=== PATIENT | male | born 1970 | race African-American/Black ===

== ENCOUNTER 2020-04-13 18:17 | Emergency (ER) | payer BC, OTHER ==
--- OUTSIDE RECORDS SUMMARY | 2020-04-13 18:20 | XMS REPORT | Summary of Care ---
:1970 Author Organization [facility] Address [address] [place] [address] Care Team Providers Name Role Phone Diamond Ordoñez MD Primary Care Provider Reason for Visit Reason Comments LAB Encounter Details Date Type Department Care Team Description 02/12/2020 [place] Visit [facility] Sen Burroughs MD [address] [place] [address] [address] Hyperthyroidism CLINICS LAB Pcp-Lab Primary Care [facility] jose [address] [place] [phone] Allergies No Known Allergiesdocumented as of this encounter (statuses as of 02/12/2020) Medications Medication Sig Dispensed Refills Start Date End Date Status Melatonin 1 mg Take 1-10 tablets 0 01/14/2017 Active tabletIndications: by mouth at Chronic insomnia bedtime as needed for Insomnia. Cholecalciferol, Take 1 capsule by 0 03/04/2017 Active Vitamin D3, (VITAMIN mouth daily. D3) 2,000 unit capsule triamcinolone 0.5 % Apply to area(s) 30 g 1 10/07/2018 Active creamIndications: Rash 3 (three) times daily. olmesartan 40 mg Take 1 tablet by 90 tablet 3 06/11/2019 Active tabletIndications: mouth daily. Essential hypertension KCL 10 mEq tablet Take 1 tablet by 90 tablet 3 06/11/2019 Active mouth daily. TRAZODONE 100 mg TAKE 1 TABLET BY 90 tablet 1 11/09/2019 Active tabletIndications: MOUTH EVERY NIGHT Chronic insomnia AT BEDTIME triamterene-hydrochloro Take 1 tablet by 30 tablet 5 0 Active thiazid 37.5-25 mg mouth daily. tabletIndications: Essential hypertension propranoloL 20 mg Take 1 tablet by 60 tablet 5 12/16/2019 Active tabletIndications: mouth 2 (two) Graves disease times daily. documented as of this encounter (statuses as of 02/12/2020) Active Problems Problem Noted Date Hyperthyroidism 07/17/2019 Anemia, unspecified type 07/09/2019 Venous insufficiency of both lower extremities 019 Overview: Added automatically from request for jimena sandoval [id number] Edema of right lower extremity 11/05/2018 Fatty liver 10/31/2017 Abnormal LFTs 10/07/2017 Screening for colorectal cancer 03/18/2017 Overview: Added automatically from request for jimena sandoval [id number] Prediabetes 03/04/2017 Erythrocytosis 03/04/2017 Low HDL (under 40) 03/04/2017 Microcytosis 03/04/2017 Vitamin D deficiency 03/04/2017 Hypertension Obesity (BMI 30-39.9) documented as of this encounter (statuses as of 02/12/2020) Immunizations Name Administration Dates Next Due TDAP 02/22/2017 documented as of this encounter Social History Tobacco Use Types Packs/Day Years Used Date Never Smoker Smokeless Tobacco: Never Used Alcohol Use Drinks/Week oz/Week Comments Yes 1 Shots of liquor 1.0 Sex Assigned at Date Recorded Not on file COVID-19 Exposure Response Date Recorded In the last month, have you been in contact with No / Unsure 02/12/2020 9:02 AM CDT someone who was confirmed or suspected to have Coronavirus / COVID-19? documented as of this encounter Last Filed Vital Signs Not on filedocumented in this encounter Nursing Notes Janna Patterson - 02/12/2020 11:15 AM CDT Venipuncture collection performed by clean technique on the left anticubitus. Total of 1 attempts were made. Slight pressure and a bandage/dressing were applied to the site(s). The patient experienced no complications. The following specimens were processed according to instructions and sent to [facility] laboratories per lab order on 02/12/2020: LT BLUE SST 1 RED LAV PPT DK GREEN (LiHep) DK GREEN (SodH) CONDE DK BLUE (K2) DK BLUE (S) ACD Blood Culture NIPT/NTD documented in this encounter Plan of Treatment Date Type Specialty Care Team Description 05/20/2020 Office Visit Endocrinology Diabetes & Jose Hinojosa MD Metabolism [address] [place] [phone] Name Type Priority Associated Diagnoses Date/Ti me THYROID STIMULATING HORMONE LAB Routine Hyperthyroidi sm 02/12/2020 10:18 AM CDT FREE T4 LAB Routine Hyperthyroidism 02/12/2020 1 0:18 AM CDT TRIIODOTHYRONINE LAB Routine Hyperthyroidism 02/12/20 20 10:18 AM CDT FREE T3 LAB Routine Hyperthyroidism 02/12/2020 1 0:18 AM CDT Health Maintenance Due Date Last Done Comments PNEUMOCOCCAL 0-64 YEARS COMBINED SERIES (1 of 3 - 1978 PCV13) INFLUENZA VACCINE (#1) 2019 Depression Screening 06/22/2020 06/23/2019 COLON CANCER SCREENING ANNUAL FIT/FOBT 2022 0 Colorectal Cancer Screening 2022 DTaP,Tdap,and Td Vaccines (2 - Td) 02/22/2027 02/22/2017 documented as of this encounter Results Not on filedocumented in this encounter Visit Diagnoses Diagnosis Hyperthyroidism Thyrotoxicosis without mention of goiter or other cause, without mention of thyrotoxic crisis or storm documented in this encounter Insurance Payer Benefit Plan Subscriber ID Effective Dates Phone Address Type / Group BCBS OF [facility] [id number] 2017-Presen [phone] [address] PPO/POS [place] t 7 [id number] [place] [address] BCBS OF [facility] [id number] 2007-Prese [phone] [address]/POS [place] nt 7 [id number] [place] [address] documented as of this encounter
--- OUTSIDE RECORDS SUMMARY | 2020-04-13 18:21 | XMS REPORT | Summary of Care ---
:1970 Author Organization [facility] Address [address] [place] [address] Care Team Providers Name Role Phone Diamond Ordoñez MD Primary Care Provider Reason for Visit Reason Comments HYPERTHYROIDISM Encounter Details Date Type Department Care Team Description 02/12/2020 Office Visit [facility] Pilo Feliz MD [facility] [address] [place] (Primary Dx) Primary Care [facility] [address] [place] [address] [phone], [address] [place] [address] Allergies No Known Allergiesdocumented as of this [...] Added automatically from request for jimena sandoval [id number] Edema of right lower extremity 11/05/2018 Fatty liver 10/31/2017 Abnormal LFTs 10/07/2017 Screening for colorectal cancer 03/18/2017 Overview: Added automatically from request for jimena sandoval [id number] Prediabetes 03/04/2017 Erythrocytosis 03/04/2017 Low HDL (under [...] of this encounter Last Filed Vital Signs Vital Sign Reading Time Taken Comments Blood Pressure 126/83 02/12/2020 9:33 AM CDT Pulse 58 02/12/2020 9:33 AM CDT Temperature 36.4 C (97.6 F) 02/12/2020 9:33 AM CDT Respiratory Rate 17 02/12/2020 9:33 AM CDT Oxygen Saturation 98% 02/12/2020 9:33 AM room air CDT Inhaled Oxygen Concentration - - Weight 124.9 kg (275 lb 6.4 oz) 02/12/2020 9:33 AM CDT Height 177.8 cm (5' 10") 02/12/2020 9:33 AM CDT Body Mass Index 39.52 02/12/2020 9:33 AM CDT documented in this encounter Progress Notes Melva Baker MBBS - 02/12/2020 9:30 AM CDT Endocrinology Telehealth Progress Note History of presenting Illness Eliazar Hall is a 49 year old Black or male who presented today for an evaluation of hyperthyroidism Patient is here today for follow up of hyperthyroidism due to Graves disease Patient had elevated TFTs in 05/2019 and 06/2019 : TSH < 0.01, Free T3 19.30, Free T4 : 3.76. Patient underwent RAIA in July 2019 for graves disease Reports weight gain of 10bs since July 2019 but no other hypo/hyperthyroid symptoms Heat or cold intolerance: no Energy is good Insomnia and anxiety: no Significant change in the weight: yes: weight gain of 10lbs since 07/2019 Palpitation or tremor: no Excessive sweating: no Skin changes or hair loss: no Constipation or diarrhea: : no He takes MV tablet once daily. Doesn' know if it contains biotin The following portions of the patient's history were reviewed and updated as appropriate: allergies,current medications, past family history, past medical history, past social history, past surgical history. Past Medical History: Diagnosis Date Abnormal LFTs 10/07/2017 Erythrocytosis 03/04/2017 Fatty liver 10/31/2017 Hypertension Hyperthyroidism Low HDL (under 40) 03/04/2017 Microcytosis 03/04/2017 Obesity (BMI 30-39.9) Prediabetes 03/04/2017 Vitamin D deficiency 03/04/2017 Past Surgical History: Procedure Laterality Date CHOLECYSTECTOMY 1998 RADIOFREQUENCY THERMOCOAGULATION OF VARICOSE VEINS (SHX) Right 06/23/2019 Surgeon: Linda Colorado MD; Location: [facility] Current Outpatient Medications Medication Sig Dispense Refill propranoloL 20 mg tablet Take 1 tablet by mouth 2 (two) times daily. 60 tablet 5 triamterene-hydrochlorothiazid 37.5-25 mg tablet Take 1 tablet by mouth daily. 30 tablet 5 TRAZODONE 100 mg tablet TAKE 1 TABLET BY MOUTH EVERY NIGHT AT BEDTIME 90 tablet 1 KCL 10 mEq tablet Take 1 tablet by mouth daily. 90 tablet 3 olmesartan 40 mg tablet Take 1 tablet by mouth daily. 90 tablet 3 triamcinolone 0.5 % cream Apply to area(s) 3 (three) times daily. 30 g 1 Cholecalciferol, Vitamin D3, (VITAMIN D3) 2,000 unit capsule Take 1 capsule by mouth daily. Melatonin 1 mg tablet Take 1-10 tablets by mouth at bedtime as needed for Insomnia. No current facility-administered medications for this visit. Allergies No Known Allergies Social History Tobacco Use Smoking status: Never Smoker Smokeless tobacco: Never Used Substance Use Topics Alcohol use: Yes Alcohol/week: 1.0 standard drinks Types: 1 Shots of liquor per week Drug use: No Family History Problem Relation Age of Onset Diabetes Brother Hypertension Brother High cholesterol Brother Hypertension Mother No Significant Medical Problems Father Review of systems: Review of Systems Constitutional: Positive for weight gain. HENT: Negative for trouble swallowing and voice change. Eyes: Negative for redness and visual disturbance. Respiratory: Negative for shortness of breath. Neurological: Positive for light-headedness. All other systems reviewed and are negative. Endocrine: Positive for weight gain. PHYSICAL EXAM BP 126/83 (BP Location: Left arm, Patient Position: Sitting, BP CUFF SIZE: Adult Large) | Pulse 58| Temp 36.4 C (97.6 F) (Oral) | Resp 17 | Ht 5' 10" (1.778 m) | Wt 275 lb 6.4 oz (124.9 kg) | SpO2 98% | BMI 39.52 kg/m Constitutional: Normocephalic and atraumatic, alert and in no distress Pulmonary: No laborous breathing Psychiatric: Patient pleasant, mood appropriate Neurology : Oriented to person, place, and time. Answers questions appropriately Eyes : Normal conjunctiva and non icteric sclera, no obvious exophthalmos HENT: Moist oral mucous membranes and normal external nose Neck : Supple, no thyroid nodules Integumentary : No rashes on visible area, no cyanosis Musculoskeletal : Normal range of motion of joints and no tremors Data Review ? HGB A1C (%) Date Value 06/11/2019 6.2 (H) Lab Results Component Value Date NA 138 06/11/2019 NA 144 10/07/2018 NA 140 04/14/2018 K 4.5 06/11/2019 K 4.5 10/07/2018 K 4.6 04/14/2018 CL 100 06/11/2019 CL 105 10/07/2018 CL 103 04/14/2018 BUN 26 (H) 06/11/2019 BUN 18 10/07/2018 BUN 15 04/14/2018 ALKPHOS 84 06/11/2019 ALKPHOS 116 04/14/2018 ALKPHOS 96 10/04/2017 ALT 24 06/11/2019 ALT 59 (H) 04/14/2018 ALT 59 (H) 10/04/2017 AST 23 06/11/2019 AST 33 04/14/2018 AST 32 10/04/2017 Lab Results Component Value Date TSH <0.02 (L) 07/10/2019 FREET4 3.76 (H) 07/10/2019 Lab Results Component Value Date CHOL 105 (L) 06/11/2019 HDL 27 (L) 06/11/2019 LDL 56 06/11/2019 TRIG 108 06/11/2019 VIT D 25OH (ng/mL) Date Value 06/11/2019 20 (L) 09/06/2017 31 Results for ELAIZAR HALL ( ) as of 02/12/2020 09:53 Ref. Range 07/10/2019 10:58 TSH AB Latest Ref Range: <=1.75 IU/L 27.52 (H) Results for ELIAZAR HALL ( ) as of 02/12/2020 09:53 Ref. Range 07/10/2019 10:58 TPO Ab Latest Ref Range: 0.0 - 100.0 WHO Units 16.1 THYROGLB Ab Latest Ref Range: 0.0 - 0.6 U 0.1 RA uptake scan Planar images: Diffuse homogeneous uptake. Iodine-123 uptake at 24 hours is 56% (normal is 15-30%). IMPRESSION Findings consistent with Graves' disease. ASSESSMENT AND PLAN Eliazar Hall is here today for an evaluation of hyperthyroidism 1. Hyperthyroidism 2. Graves disease(positive TSH Ab) 3. S/p RAIA Patient with no hypo/hyperthyroid symptoms currently post ablation Will get repeat TFTs today and patient to get TFTs q3 months to monitor for development of hypothyroidism Orders Placed This Encounter Procedures THYROID STIMULATING HORMONE FREE T4 TRIIODOTHYRONINE FREE T3 Patient seen and discussed with Dr. Micaela Baker MD PGY5 Endocrine Fellow [phone] documented in this encounter Plan of Treatment Date Type Specialty Care Team Description 05/20/2020 Office Visit Endocrinology Diabetes & Jose Hinojosa MD Metabolism [address] [place] [phone] Name Type Priority Associated Diagnoses Date/Ti me THYROID STIMULATING HORMONE LAB Routine Hyperthyroidi sm 02/12/2020 10:18 AM CDT FREE T4 LAB Routine Hyperthyroidism 02/12/2020 1 0:18 AM CDT TRIIODOTHYRONINE LAB Routine Hyperthyroidism 02/12/20 20 10:18 AM CDT FREE T3 LAB Routine Hyperthyroidism 02/12/2020 1 0:18 AM CDT Name Type Priority Associated Diagnoses Order S chedule THYROID STIMULATING HORMONE LAB Routine Hyperthyroidi sm 1 Occurrences starting 02/12/2020 unti l 08/12/2020 FREE T4 LAB Routine Hyperthyroidism 1 Occurrence s starting 02/12/2020 unti l 08/12/2020 TRIIODOTHYRONINE LAB Routine Hyperthyroidism Expected : 02/12/2020, Expires: 2020 FREE T3 LAB Routine Hyperthyroidism Expected: , Expires: 2020 Health Maintenance Due Date Last Done Comments PNEUMOCOCCAL 0-64 YEARS COMBINED SERIES (1 of 3 - 1978 PCV13) INFLUENZA VACCINE (#1) 2019 Depression Screening 06/22/2020 06/23/2019 COLON CANCER SCREENING ANNUAL FIT/FOBT 2022 0 Colorectal Cancer Screening 2022 DTaP,Tdap,and Td Vaccines (2 - Td) 02/22/2027 02/22/2017 documented as of this encounter Results Not on filedocumented in this encounter Visit Diagnoses Diagnosis Hyperthyroidism - Primary Thyrotoxicosis without mention of goiter or other cause, without mention of thyrotoxic crisis or storm documented in this encounter Insurance Payer Benefit Plan Subscriber ID Effective Dates Phone Address Type / Group BCBS OF [facility] [id number] 2017-Suni [phone] [address] PPO/POS [place] t 7 [id number] [place] [address] BCBS OF BCBS FED [id number] 2007-Prese [phone] [address]/POS [place] SELECT nt 7 [id number] [place] [address] documented as of this encounter
--- OUTSIDE RECORDS SUMMARY | 2020-04-13 18:21 | XMS REPORT | Summary of Care ---
:1970 Author Organization [facility] Address [address] [place] [address] Care Team Providers Name Role Phone Diamond Ordoñez MD Primary Care Provider Reason for Visit Reason Comments HYPERTHYROIDISM Encounter Details Date Type Department Care Team Description 02/12/2020 Office Visit [facility] Pilo Feliz MD Hyperthyroidism (Primary Dx); Diabetes- Thomas [address] Robetrs disease Primary Care [address] [place] [address] [place] [address] Drive, [address] [place] [address] Allergies No Known Allergiesdocumented as of this encounter (statuses as of 02/18/2020) Medications Medication Sig Dispensed Refills Start Date [...] as of this encounter (statuses as of 02/18/2020) Active Problems Problem Noted Date Hyperthyroidism 07/17/2019 Anemia, unspecified type 07/09/2019 Venous insufficiency of both lower extremities 019 Overview: Added automatically from request for jimena sandoval [id number] Edema of right lower extremity 11/05/2018 Fatty liver 10/31/2017 Abnormal LFTs 10/07/2017 Screening for colorectal cancer 03/18/2017 Overview: Added automatically from request for jimena sandoval [id number] Prediabetes 03/04/2017 Erythrocytosis 03/04/2017 Low HDL (under 40) 03/04/2017 Microcytosis 03/04/2017 Vitamin D deficiency 03/04/2017 Hypertension Obesity (BMI 30-39.9) documented as of this encounter (statuses as of 02/18/2020) Immunizations Name Administration Dates Next Due TDAP [...] CDT documented in this encounter Progress Notes Pilo Hinojosa MD - 02/12/2020 9:30 AM CDTI saw and evaluated Mr. Eliazar Hall with Dr. Baker and actively participated in medical decision making. I reviewed the note and agree with the findings and the plan of care as documented in the note and made appropriate addendums where necessary. Pilo Hinojosa MD Supply Chain Development Manager Endocrinology Melva Neal MBBS - 02/12/2020 9:30 AM CDT Endocrinology Outpatient Progress Note CC: follow up hyperthyroidism History of presenting Illness Eliazar Hall is [...] Right 06/23/2019 Surgeon: Linda Colorado MD; Location: [facility] Location Current Outpatient Medications Medication Sig Dispense Refill [...] 06/11/2019 20 (L) 09/06/2017 31 Results for ELIAZAR HALL ( ) as [...] Dr. Micaela Baker MD PGY5 Endocrine Fellow [phone] ICAL THERAPIST TECHNICIAN documented in this encounter Plan of Treatment Date Type Specialty Care Team Description 05/20/2020 Office Visit Endocrinology Diabetes & Jose Hinojosa MD Metabolism [address] [place], [place] [address] Health Maintenance Due Date Last Done Comments PNEUMOCOCCAL 0-64 YEARS COMBINED SERIES (1 of 3 - 1978 PCV13) INFLUENZA VACCINE (#1) 2019 Depression Screening 06/22/2020 06/23/2019 COLON CANCER SCREENING ANNUAL FIT/FOBT 2022 0 Colorectal Cancer Screening 2022 DTaP,Tdap,and Td Vaccines (2 - Td) 02/22/2027 02/22/2017 documented as of this encounter Results FREE T3 (02/12/2020 10:18 AM CDT) Pathologist Sig nature FREE T3 1.52 (L) 2.77 - 5.27 pg/mL [facility] Specimen Blood Performing Organization Address City/[facility]/Zipcode Phone Number [facility] CLIA: [id number] [place] [address] [place] [address] TRIIODOTHYRONINE (02/12/2020 10:18 AM CDT) Pathologist Sig nature T3 83.7 (L) 97.0 - 170.0 ng/dL [facility] Specimen Blood Performing Organization Address City/[facility]/Zipcode Phone Number [facility] CLIA: [id number] [place] [address] [place] [address] FREE T4 (02/12/2020 10:18 AM CDT) Pathologist Sig nature FREE T4 0.18 (L) 0.78 - 2.20 ng/dL: [facility] Specimen Blood Performing Organization Address City/[facility]/Zipcode Phone Number [facility] CLIA: [id number] [place] [address] [place] [address] THYROID STIMULATING HORMONE (02/12/2020 10:18 AM CDT) Pathologist Sig nature TSH 45.80 (H) 0.45 - 4.70 mIU/L [facility] Specimen Blood Performing Organization Address City/[facility]/Zipcode Phone Number [facility] CLIA: [id number] [place] [address] [place] [address] documented in this encounter Visit Diagnoses Diagnosis Hyperthyroidism - Primary Thyrotoxicosis without mention of goiter or other cause, without mention of thyrotoxic crisis or storm Graves disease Toxic diffuse goiter without mention of thyrotoxic crisis or storm documented in this encounter Insurance Payer Benefit Plan Subscriber ID Effective Dates Phone Address Type / Group BCBS OF [employer] [place] [id number] 2017-Presen [phone] [address] PPO/POS [place] t 7 [id number] [place] [address] BCBS OF BCBS FED [id number] 2007-Prese [phone] [address]/POS [place] SELECT nt 7 [id number] [place] [address] documented as of this encounter
--- OUTSIDE RECORDS SUMMARY | 2020-04-13 18:21 | XMS REPORT | Summary of Care ---
:1970 Author Organization [facility] Address [address] [place] [address] Care Team Providers Name Role Phone Diamond Ordoñez MD Primary Care Provider Reason for Visit Reason Comments HYPERTHYROIDISM Encounter Details Date Type Department Care Team Description 02/12/2020 Office Visit [facility] Pilo Feliz [facility] [address] [place] (Primary Dx) Primary Care [facility] [address] [place] [address] [address] [place] [phone], [address] [place] [address] Allergies No Known Allergiesdocumented as of this encounter (statuses as of 02/16/2020) Medications Medication Sig Dispensed Refills Start Date [...] as of this encounter (statuses as of 02/16/2020) Active Problems Problem Noted Date Hyperthyroidism 07/17/2019 Anemia, unspecified type 07/09/2019 Venous insufficiency of both lower extremities 019 Overview: Added automatically from request for jimena sandoval [id number] Edema of right lower extremity 11/05/2018 Fatty liver 10/31/2017 Abnormal LFTs 10/07/2017 Screening for colorectal cancer 03/18/2017 Overview: Added automatically from request for jimena sandoval [id number] Prediabetes 03/04/2017 Erythrocytosis 03/04/2017 Low HDL (under 40) 03/04/2017 Microcytosis 03/04/2017 Vitamin D deficiency 03/04/2017 Hypertension Obesity (BMI 30-39.9) documented as of this encounter (statuses as of 02/16/2020) Immunizations Name Administration Dates Next Due TDAP [...] appropriate addendums where necessary. Pilo Hinojosa MD Resistance [facility]er Endocrinology Melva Neal MBBS - 02/12/2020 9:30 [...] Past Surgical History: Procedure Laterality Date CHOLECYSTECTOMY 1999 RADIOFREQUENCY THERMOCOAGULATION OF VARICOSE VEINS (SHX) Right 06/23/2019 Surgeon: Linda Colorado MD; Location: [facility] Location Current Outpatient Medications Medication Sig [...] Dr. Micaela Baker MD PGY5 Endocrine Fellow [phone] documented in this encounter Plan of Treatment Date Type Specialty Care Team Description 05/20/2020 Office Visit Endocrinology Diabetes & Jose Hinojosa MD Metabolism [address] [facility] [place] [phone] Health Maintenance Due Date Last Done [...] T3 1.52 (L) 2.77 - 5.27 pg/mL [facility] Specimen Blood Performing Organization Address City/[facility] Phone Number [facility] CLIA: [id number] [place], [place] [address] [place] [address] TRIIODOTHYRONINE (02/12/2020 10:18 AM CDT) Pathologist Sig nature T3 83.7 (L) 97.0 - 170.0 ng/dL [facility] ES Specimen Blood Performing Organization Address City/[facility]/Zipcode Phone Number [facility] CLIA: [id number] [place] [address] [address] [facility] FREE T4 (02/12/2020 10:18 AM CDT) Pathologist Sig nature FREE T4 0.18 (L) 0.78 - 2.20 ng/dL: [facility] Specimen Blood Performing Organization Address City/[facility]/Zipcode Phone Number [facility] CLIA: [id number] [place] [address] [place] [address] THYROID STIMULATING HORMONE (02/12/2020 10:18 AM CDT) Pathologist Sig nature TSH 45.80 (H) 0.45 - 4.70 mIU/L [facility] S Specimen Blood Performing Organization Address City/[facility]ode Phone Number [facility] CLIA: [id number] [place] [address] [place] [address] documented in this encounter Visit Diagnoses Diagnosis Hyperthyroidism - Primary Thyrotoxicosis without mention of goiter or other cause, without mention of thyrotoxic crisis or storm documented in this encounter Insurance Payer Benefit Plan Subscriber ID Effective Dates Phone Address Type / Group BCBS OF [employer] [place] [id number] 2017-Presen [phone] [address] PPO/POS [place] t 7 [id number] [place] [address] BCBS OF [facility] [id number] 2007-Prese [phone] [address]/POS [place] SELECT nt 7 [id number] [place] [address] documented as of this encounter
--- OUTSIDE RECORDS SUMMARY | 2020-04-13 18:21 | XMS REPORT | Summary of Care ---
:1970 Author Organization [facility] - [facility] Address [address] [place] [address] Care Team Providers Name Role Phone Diamond Ordoñez MD Primary Care Provider Reason for Visit Reason Comments LAB Encounter Details Date Type Department Care Team Description 02/12/2020 Oleomargarine Maker Visit [facility] Pilo Hinojosa M D [address] [place] [address] [address] Postablative hypothyroidism (Primary Dx) ; [facility] Pcp-Lab Hyperthyroidism LAB Primary Care [address] [phone] Allergies No Known Allergiesdocumented as of this encounter (statuses as of 02/16/2020) Medications Medication Sig Dispensed Refills Start Date End Date Status Melatonin 1 mg Take 1-10 0 01/14/2017 Acti ve tabletIndications: tablets by mouth Chronic insomnia at bedtime as needed for Insomnia. Cholecalciferol, Vitamin Take 1 capsule 0 03/04/2017 Active D3, (VITAMIN D3) 2,000 by mouth daily. unit capsule triamcinolone 0.5 % Apply to 30 g 1 10/07/2018 Active creamIndications: Rash area(s) 3 (three) times daily. olmesartan 40 mg Take 1 tablet by 90 tablet 3 06/11/2019 Active tabletIndications: mouth daily. Essential hypertension KCL 10 mEq tablet Take 1 tablet by 90 tablet 3 06/11/2019 Active mouth daily. TRAZODONE 100 mg TAKE 1 TABLET BY 90 tablet 1 11/09/2019 Active tabletIndications: MOUTH EVERY Chronic insomnia NIGHT AT BEDTIME triamterene-hydrochlorot Take 1 tablet by 30 tablet 5 12/15/19 20 Active hiazid 37.5-25 mg mouth daily. tabletIndications: Essential hypertension propranoloL 20 mg Take 1 tablet by 60 tablet 5 12/16/2019 Active tabletIndications: mouth 2 (two) Graves disease times daily. levothyroxine 150 mcg Take 1 tablet by 60 tablet 0 02/16/2020 Active tabletIndications: mouth every Postablative morning. hypothyroidism documented as of this encounter (statuses as of 02/16/2020) Active Problems Problem Noted Date Hyperthyroidism 07/17/2019 Anemia, unspecified type 07/09/2019 Venous insufficiency of both lower extremities 019 Overview: Added automatically from request for jimena sandoval [id number] Edema of right lower extremity 11/05/2018 Fatty liver 10/31/2017 Abnormal LFTs 10/07/2017 Screening for colorectal cancer 03/18/2017 Overview: Added automatically from request for jimena sandoval [id number] Prediabetes 03/04/2017 Erythrocytosis 03/04/2017 Low HDL (under [...] Not on filedocumented in this encounter Nursing Janna Manley - 02/12/2020 11:15 AM CDT Venipuncture collection performed by clean technique on the left anticubitus. Total of 1 attempts were made. Slight pressure and a bandage/dressing were applied to the site(s). The patient experienced no complications. The following specimens were processed according to instructions and sent to [facility] laboratories per lab order on 02/12/2020: LT BLUE SST 1 RED LAV PPT DK GREEN (LiHep) DK GREEN (SodH) CONDE DK BLUE (K2) DK BLUE (S) ACD Blood Culture NIPT/NTD documented in this encounter Miscellaneous Notes Addendum Note - Melva Harry MBBS - 02/12/2020 11:15 AM CDT Addended by: MELVA HARRY on: 02/16/2020 04:09 PM Modules accepted: Orders IC TRANSIT SPECIALIST documented in this encounter Plan of Treatment Date Type Specialty Care Team Description 05/20/2020 Office Visit Endocrinology Diabetes & Jose Hinojosa MD Metabolism [address] [phone] Health Maintenance Due Date Last Done Comments PNEUMOCOCCAL 0-64 YEARS COMBINED SERIES (1 of 3 - 1978 PCV13) INFLUENZA VACCINE (#1) 2019 Depression Screening 06/22/2020 06/23/2019 COLON CANCER SCREENING ANNUAL FIT/FOBT 2022 0 Colorectal Cancer Screening 2022 DTaP,Tdap,and Td Vaccines (2 - Td) 02/22/2027 02/22/2017 documented as of this encounter Procedures Procedure Name Priority Date/Time Associated Diagnosis Comme nts FREE T3 Routine 02/12/2020 10:18 Hyperthyroidism Results for this AM CDT procedure are i n the results section. THYROID STIMULATING Routine 02/12/2020 10:18 Hyperthyroidism R esults for this HORMONE AM CDT procedure are i n the results section. TRIIODOTHYRONINE Routine 02/12/2020 10:18 Hyperthyroidism Resu lts for this AM CDT procedure are i n the results section. FREE T4 Routine 02/12/2020 10:18 Hyperthyroidism Results for this AM CDT procedure are i n the results section. documented in this encounter Results FREE T3 (02/12/2020 10:18 AM CDT) Pathologist Sig nature FREE T3 1.52 (L) 2.77 - 5.27 pg/mL [facility] S Specimen Blood Performing Organization Address [facility] Phone Number [facility] CLIA: [id number] [place] [address] [place] [address] TRIIODOTHYRONINE (02/12/2020 10:18 AM CDT) Pathologist Sig nature T3 83.7 (L) 97.0 - 170.0 ng/dL [facility] Specimen Blood Performing Organization Address City/[facility] Phone Number [facility] CLIA: [id number] [place] [address] [place] [address] FREE T4 (02/12/2020 10:18 AM CDT) Pathologist Sig nature FREE T4 0.18 (L) 0.78 - 2.20 ng/dL: [facility] Specimen Blood Performing Organization Address [facility] Phone Number [facility] CLIA: [id number] [place] [address] [place] [address] THYROID STIMULATING HORMONE (02/12/2020 10:18 AM CDT) Pathologist Sig nature TSH 45.80 (H) 0.45 - 4.70 mIU/L [facility] S Specimen Blood Performing Organization Address [facility] Phone Number [facility] CLIA: [id number] [place] [address] [place] [address] documented in this encounter Visit Diagnoses Diagnosis Postablative hypothyroidism - Primary Other postablative hypothyroidism Hyperthyroidism Thyrotoxicosis without mention of goiter or other cause, without mention of thyrotoxic crisis or storm documented in this encounter Insurance Payer Benefit Plan Subscriber ID Effective Dates Phone Address Type / Group BCBS OF [place] [id number] 2017-Presen [phone] [address] PPO/POS [place] t [id number] [place] [address] BCBS OF [facility] [id number] 2007-Prese [phone] [address] O/POS [place] nt 7 [id number] [place] [address] documented as of this encounter
--- OUTSIDE RECORDS SUMMARY | 2020-04-13 18:21 | XMS REPORT | Summary of Care ---
:1970 Author Organization [facility] Address [address] [place] [address] Care Team Providers Name Role Phone Diamond Ordoñez MD Primary Care Provider Reason for Visit Reason Comments HYPERTHYROIDISM Encounter Details Date Type Department Care Team Description 02/12/2020 Office Visit [facility] [address] [facility] Primary Care [facility] [address] [place] [address] [phone], [address] [place] [address] Allergies No Known Allergiesdocumented as [...] Added automatically from request for jimena sandoval [id number] Edema of right lower extremity 11/05/2018 Fatty liver 10/31/2017 Abnormal LFTs 10/07/2017 Screening for colorectal cancer 03/18/2017 Overview: Added automatically from request for jimena sandoval [id number] Prediabetes 03/04/2017 Erythrocytosis 03/04/2017 Low HDL (under [...] Right 06/23/2019 Surgeon: Linda Colorado MD; Location: [facility] Current Outpatient Medications Medication Sig Dispense Refill [...] Dr. Micaela Baker MD PGY5 Endocrine Fellow [phone] documented in this encounter Plan of Treatment Date Type Specialty Care Team Description 05/20/2020 Office Visit Endocrinology Diabetes & Jose Hinojosa MD Metabolism [address] [address] Name Type Priority Associated Diagnoses Date/Ti [...] Phone Address Type / Group BCBS OF [place] [facility] [id number] 2017-Suni [phone] [address] PPO/POS [place] t [id number] [place] [address] BCBS OF BCBS FED [id number] 2007-Prese [phone] [address] O/POS [place] [address] nt 7 [id number] [place] [address] documented as of this encounter
--- OUTSIDE RECORDS SUMMARY | 2020-04-13 18:21 | XMS REPORT | Summary of Care ---
:1970 Author Organization [facility] Address [address] [place] [address] Care Team Providers Name Role Phone Diamond Ordoñez MD Primary Care Provider Encounter Details Date Type Department Care Team Description 02/16/2020 Patient Secure [facility] Painting Doctor Diabetes-LC Multispecialty Unassigned, No Ctr Name [address] [facility], [address] [facility] [place], [place] [phone] Allergies No Known Allergiesdocumented as of this [...] Added automatically from request for jimena sandoval [id number] Edema of right lower extremity 11/05/2018 Fatty liver 10/31/2017 Abnormal LFTs 10/07/2017 Screening for colorectal cancer 03/18/2017 Overview: Added automatically from request for jimena sandoval [id number] Prediabetes 03/04/2017 Erythrocytosis 03/04/2017 Low HDL (under [...] Signs Not on filedocumented in this encounter Miscellaneous Notes Telephone Encounter - Melva Baker MBBS - 02/18/2020 4:30 PM CSTTried to call patient Left voicemail documented in this encounter Plan of Treatment Date Type Specialty Care Team Description 05/20/2020 Office Visit Endocrinology Diabetes & Jose Hinojosa MD Metabolism [address] [facility] [address] [address] [phone] Health Maintenance Due Date Last Done Comments PNEUMOCOCCAL 0-64 YEARS COMBINED SERIES (1 of 3 - 1978 PCV13) INFLUENZA VACCINE (#1) 2019 Depression Screening 06/22/2020 06/23/2019 COLON CANCER SCREENING ANNUAL FIT/FOBT 2022 0 Colorectal Cancer Screening 2022 DTaP,Tdap,and Td Vaccines (2 - Td) 02/22/2027 02/22/2017 documented as of this encounter Results Not on filedocumented in this encounter Insurance Payer Benefit Plan Subscriber ID Effective Dates Phone Address Type / Group BC[place] OF [place] [id number] 2017-Presen [phone] [address] PPO/POS [place] t 7 [id number] [place] [address] BCBS OF BCBS FED [id number] 2007-Prese [phone] [address] O/POS [facility] nt 7 [id number] [place] [address] documented as of this encounter
--- OUTSIDE RECORDS SUMMARY | 2020-04-13 18:22 | XMS REPORT | Summary of Care ---
:[address] [facility] Address [address] [place] [address] Care Team Providers Name Role Phone Diamond Ordoñez MD Primary Care Provider Encounter Details Date Type Department Care Team Description 02/16/2020 Patient Secure [facility] Painting Doctor Diabetes-LC Multispecialty Unassigned, No Ctr Name [address] [facility], [address] [facility] [place] [phone] Allergies No Known Allergiesdocumented as of this encounter (statuses as of 02/20/2020) Medications Medication Sig Dispensed Refills Start Date [...] as of this encounter (statuses as of 02/20/2020) Active Problems Problem Noted Date Hyperthyroidism 07/17/2019 Anemia, unspecified type 07/09/2019 Venous insufficiency of both lower extremities 019 Overview: Added automatically from request for jimena sandoval [id number] Edema of right lower extremity 11/05/2018 Fatty liver 10/31/2017 Abnormal LFTs 10/07/2017 Screening for colorectal cancer 03/18/2017 Overview: Added automatically from request for jimena sandoval [id number] Prediabetes 03/04/2017 Erythrocytosis 03/04/2017 Low HDL (under 40) 03/04/2017 Microcytosis 03/04/2017 Vitamin D deficiency 03/04/2017 Hypertension Obesity (BMI 30-39.9) documented as of this encounter (statuses as of 02/20/2020) Immunizations Name Administration Dates Next Due TDAP [...] Telephone Encounter - Melva Baker MBBS - 02/20/2020 12:17 PM CSTTried to call patient again today. Left voicemail elephone Encounter - Melva Baker MBBS - 02/18/2020 4:30 PM CSTTried to call patient Left voicemail documented in this encounter Plan of Treatment Date Type Specialty Care Team Description 05/20/2020 Office Visit Endocrinology Diabetes & Jose Hinojosa MD Metabolism [address] [address] [phone] Health Maintenance Due Date Last Done Comments [...] Type / Group BCBS OF [place] [id number] 2017-Presen [phone] [address] PPO/POS [place] t [id number] [place] [address] BCBS OF BCBS FED [id number] 2007-Prese [phone] [address] O/POS [place] SELECT nt 7 [id number] [place] [address] documented as of this encounter
--- OUTSIDE RECORDS SUMMARY | 2020-04-13 18:22 | XMS REPORT | Continuity of Care Document ---
:1970 Author Organization [facility] t Address [address] [place] [address] Dr. Galvez. [address] [place] [address] Care Team Providers Name Role Phone Doctor Unassigned, Name Attending Clinician Unavailable Problems This patient has no known problems. Allergies, Adverse Reactions, Alerts This patient has no known allergies or adverse reactions. Medications This patient has no known medications. Procedures This patient has no known procedures. Encounters Start End Encounter Admission Attending Care Care Encounter Source Date/Time Date/Time Type Type Clinicians Facility Department ID 2020-02-16 2020-02-16 Patient Doctor [facility] [id number] 00:00:00 00:00:00 Secure Msg Unassigned, MULTISPEC [id number] Dulce DOMINGO [id number] [place] [id number] [facility] Results This patient has no known results.
--- NOTE | 2020-04-13 18:41 | ER ---
Nurse's Notes [facility] Name: Eliazar Hall Age: 49 yrs Sex: Male : 1970 Arrival Date: 04/13/2020 Time: 18:19 Bed Waiting [facility] MD: Diagnosis: Grant's palsy Presentation: 04/13 18:20 Chief complaint: Chief complaint: Chief complaint: Chief complaint: Patient states: aa5 left sided facial droop that began after he woke up from a nap, pt reports he went to bed today at 1600 and he was normal. Pt denies numbness/tingling, no arm drift noted, no visual disturbances. Pt unable to close left eye completely. 18:20 Coronavirus screen: Client denies travel out of the [place] in the last 14 days. At this aa5 time, the client does not indicate any symptoms associated with coronavirus-19. Ebola Screen: Patient negative for fever greater than or equal to 101.5 degrees Fahrenheit, and additional compatible Ebola Virus Disease symptoms. Initial Sepsis Screen: Does the patient meet any 2 criteria? No. Patient's initial sepsis screen is negative. Does the patient have a suspected source of infection? No. Patient's initial sepsis screen is negative. Risk Assessment: Do you want to hurt yourself or someone else? Patient reports no desire to harm self or others. Onset of symptoms was March 2020. 18:20 Acuity: IVANIA 4 aa5 18:20 Method Of Arrival: Ambulatory aa5 Historical: - Allergies: 18:26 No Known Allergies; aa5 - PMHx: 18:26 Hypertension; aa5 - Immunization history:: Adult Immunizations unknown. - Social history:: Smoking status: Patient denies any tobacco usage or history of. Screenin:23 Abuse screen: Denies threats or abuse. Denies injuries from another. Nutritional ss screening: No deficits noted. Tuberculosis screening: Never had TB. Fall Risk None identified. 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 . aa5 19:23 General: Appears in no apparent distress. Pain: Denies pain. Neuro: Reports facial ss droop that he noticed after waking up from a nap earlier today . Denies dizziness, numbness headache photophobia. Neuro: Level of Consciousness is awake, alert, obeys commands, Facial droop on left. Respiratory: Airway is patent Respiratory effort is even, unlabored, Respiratory pattern is regular, symmetrical. GI: No signs and/or symptoms were reported involving the gastrointestinal system. Derm: Skin is pink, warm \T\ dry. normal. Vital Signs: 18:26 BP 156 / 104; Pulse 75; Resp 18 S; Temp 98.3(O); Pulse Ox 100% on R/A; Weight 122.47 kg aa5 (R); Height 5 ft. 9 in. (175.26 cm) (R); 18:26 Body Mass Index 39.87 (122.47 kg, 175.26 cm) aa5 NIH Stroke Scale Scores: 19:25 NIHSS Score: 2 ss ED Course: 18:19 Patient arrived in ED. ag5 18:22 Arm band placed on. aa5 18:26 Triage completed. aa5 18:37 Jo Tam FNP-C is PHCP. snw 18:37 Ej Del Real MD is Attending Physician. snw 19:23 Patient has correct armband on for positive identification. ss 19:23 No provider procedures requiring assistance completed. Patient did not have IV access ss during this emergency room visit. Administered Medications: 19:25 Not Given (Pt left prior to recieving medications): Pepcid 20 mg PO once ss 19:26 Not Given (Pt left prior to recieving medication ): predniSONE 20 mg PO once ss 19:26 Not Given (Pt left prior to recieving medication): Acyclovir 800 mg PO once ss 19:26 Not Given (Pt left prior to recieving medications): Artificial Tear Drops 2 drops ss Ophthalmic in left eye once Outcome: 18:40 Discharge ordered by . snw 19:23 Discharged to home ambulatory. ss 19:23 Condition: good 19:23 Discharge instructions given to patient, Instructed on discharge instructions, follow up and referral plans. medication usage, Demonstrated understanding of instructions, follow-up care, medications, Prescriptions given X 3. 19:25 Patient left the ED. ss NIH Stroke Scale - NIH Stroke Score Date: 04/13/2020 Time: 19:25 Total Score = 2 1a. Level of Consciousness (LOC) - 0(Alert) 1b. Level of Consciousness (LOC) (Year \T\ Age) - 0(Both) 1c. LOC Commands (Open \T\ Closes Eyes/Manager Lab) - 0(Both) 2. Best Gaze (Lateral Gaze Paresis) - 0(Normal) 3. Visual Field Loss - 0(No visual loss) 4. Facial Palsy - 2(Partial paralysis) 5a. Left Arm: Motor (10-second hold) - 0(No drift) 5b. Right Arm: Motor (10-second hold) - 0(No drift) 6a. Left Leg: Motor (5-second hold - always test supine) - 0(No drift) 6b. Right Leg: Motor (5-second hold - always test supine) - 0(No drift) 7. Limb Ataxia (finger/nose \T\ heel/fields - test with eyes open) - 0(Absent) 8. Sensory Loss (pinprick arms/legs/face) - 0(Normal) 9. Best Language: Aphasia (description/naming/reading) - 0(No aphasia) 10. Dysarthria (speech clarity - read or repeat words) - 0(Normal) 11. Extinction and Inattention (visual/tactile/auditory/spatial/personal) - 0(No abnormality) Initials: ss Signatures: Jo Tam, MARRIAGE COUNSELOR-C MARRIAGE COUNSELOR-Csnw Tressa Smith, RN RN aa5 Angela Foss RN RN ss Osito Denson ag5 Corrections: (The following items were deleted from the chart) 18:23 18:23 Chief complaint: aa5 aa5 18:24 18:21 Chief complaint: aa5 aa5 18:26 18:21 Chief complaint: Chief complaint: aa5 aa5 19:24 19:23 Neuro: Level of Consciousness is awake, alert, obeys commands, ss ss
--- NOTE | 2020-04-13 18:41 | EDPHYS ---
Physician Documentation [facility] Name: Eliazar Hall Age: 49 yrs Sex: Male : 1970 Arrival Date: 04/13/2020 Time: 18:19 Bed Waiting Private MD: ED Physician Ej Del Real HPI: 04/13 19:08 This 49 yrs old Black Male presents to ER via Ambulatory with complaints of Facial snw Droop. 19:08 The patient presents to the emergency department with left facial movement problem. snw Onset: The symptoms/episode began/occurred acutely. Context: occurred at home. Associated signs and symptoms: The patient has no apparent associated signs or symptoms. Severity of symptoms: At their worst the symptoms were mild in the emergency department the symptoms are unchanged. Patient's baseline: Neuro: alert and fully oriented, Motor: no deficits, Ambulation: walks without assistance, Speech: normal, The patient has a previous history of HTN. Current symptoms: paralysis or paresis, of the left face, that is moderate. The patient has not experienced similar symptoms in the past. It is unknown whether or not the patient has recently seen a physician. Historical: - Allergies: 18:26 No Known Allergies; aa5 - PMHx: 18:26 Hypertension; aa5 - Immunization history:: Adult Immunizations unknown. - Social history:: Smoking status: Patient denies any tobacco usage or history of. ROS: 19:07 Constitutional: Negative for fever, chills, and weight loss, Neck: Negative for injury, snw pain, and swelling, Cardiovascular: Negative for chest pain, palpitations, and edema, Respiratory: Negative for shortness of breath, cough, wheezing, and pleuritic chest pain, Abdomen/GI: Negative for abdominal pain, nausea, vomiting, diarrhea, and constipation, Back: Negative for injury and pain, : Negative for injury, bleeding, discharge, and swelling, MS/Extremity: Negative for injury and deformity, Skin: Negative for injury, rash, and discoloration, Neuro: Negative for headache, weakness, numbness, tingling, and seizure, Psych: Negative for depression, anxiety, suicide ideation, homicidal ideation, and hallucinations. 19:07 Eyes: Positive for decreased left eyelid movement. 19:07 ENT: Positive for unequal smile. Exam: 19:04 Constitutional: This is a well developed, well nourished patient who is awake, alert, snw and in no acute distress. Neck: Trachea midline, no thyromegaly or masses palpated, and no cervical lymphadenopathy. Supple, full range of motion without nuchal rigidity, or vertebral point tenderness. No Meningismus. Chest/axilla: Normal chest wall appearance and motion. Nontender with no deformity. No lesions are appreciated. Cardiovascular: Regular rate and rhythm with a normal S1 and S2. No gallops, murmurs, or rubs. Normal PMI, no JVD. No pulse deficits. Respiratory: Lungs have equal breath sounds bilaterally, clear to auscultation and percussion. No rales, rhonchi or wheezes noted. No increased work of breathing, no retractions or nasal flaring. Abdomen/GI: Soft, non-tender, with normal bowel sounds. No distension or tympany. No guarding or rebound. No evidence of tenderness throughout. Back: No spinal tenderness. No costovertebral tenderness. Full range of motion. Skin: Warm, dry with normal turgor. Normal color with no rashes, no lesions, and no evidence of cellulitis. MS/ Extremity: Pulses equal, no cyanosis. Neurovascular intact. Full, normal range of motion. Psych: Awake, alert, with orientation to person, place and time. Behavior, mood, and affect are within normal limits. 19:04 Head/face: Noted is no obvious of injury or deformity except left sided facial paralysis. 19:04 Eyes: Periorbital structures: appear normal, Pupils: no acute changes, Extraocular movements: no acute changes. 19:04 ENT: left sided droop, lack of movement to left forehead. 19:04 Neuro: Orientation: is normal, Mentation: is normal, Cranial nerves: extraocular movements are intact, facial droop noted on left, lack of left sided facial movement. Motor: no acute changes, moves all fours, Sensation: is normal, seizure activity, is not displayed by the patient. Vital Signs: 18:26 BP 156 / 104; Pulse 75; Resp 18 S; Temp 98.3(O); Pulse Ox 100% on R/A; Weight 122.47 kg aa5 (R); Height 5 ft. 9 in. (175.26 cm) (R); 18:26 Body Mass Index 39.87 (122.47 kg, 175.26 cm) aa5 NIH Stroke Scale Scores: 19:25 NIHSS Score: 2 ss MDM: 18:40 Patient medically screened. snw 18:51 Data reviewed: vital signs, nurses notes. Data interpreted: Pulse oximetry: on room air snw is 100 %. Interpretation: normal. Counseling: I had a detailed discussion with the patient and/or guardian regarding: the historical points, exam findings, and any diagnostic results supporting the discharge/admit diagnosis, the presence of at least one elevated blood pressure reading (>120/80) during this emergency department visit, the need for outpatient follow up, to return to the emergency department if symptoms worsen or persist or if there are any questions or concerns that arise at home. Special discussion: I have referred the patient to see his PCP for further evaluation of high blood pressure. Based on the history and exam findings, there is no indication for further emergent testing or inpatient evaluation. I discussed with the patient/guardian the need to see the primary care provider for further evaluation of the symptoms. Administered Medications: 19:25 Not Given (Pt left prior to recieving medications): Pepcid 20 mg PO once ss 19:26 Not Given (Pt left prior to recieving medication ): predniSONE 20 mg PO once ss 19:26 Not Given (Pt left prior to recieving medication): Acyclovir 800 mg PO once ss 19:26 Not Given (Pt left prior to recieving medications): Artificial Tear Drops 2 drops ss Ophthalmic in left eye once Disposition: 04/14 07:25 Co-signature as Attending Physician, Ej Del Real MD I agree with the assessment and kdr plan of care. Disposition: 04/13/20 18:40 Discharged to Home. Impression: Grant's palsy. - Condition is Stable. - Discharge Instructions: Grant Palsy, Adult, Dry Eye, Rehydration, Adult. - Prescriptions for Valtrex 1 g Oral Tablet - take 1 tablet by ORAL route every 8 hours for 7 days; 21 tablet. Prednisone 20 mg Oral Tablet - take 2 tablet by ORAL route once daily for 5 days; 10 tablet. Pepcid 20 mg Oral Tablet - take 1 tablet by ORAL route once daily for 10 days; 10 tablet. - Work release form, Medication Reconciliation Form, Thank You Letter, Antibiotic Education, Prescription Opioid Use form. - Follow up: Emergency Department; When: As needed; Reason: Worsening of condition. Follow up: Private Physician; When: 2 - 3 days; Reason: Recheck today's complaints, Continuance of care, Re-evaluation by your physician. NIH Stroke Scale - NIH Stroke Score Date: 04/13/2020 Time: 19:25 Total Score = 2 1a. Level of Consciousness (LOC) - 0(Alert) 1b. Level of Consciousness (LOC) (Year \T\ Age) - 0(Both) 1c. LOC Commands (Open \T\ Closes Eyes/Statistical Clerk) - 0(Both) 2. Best Gaze (Lateral Gaze Paresis) - 0(Normal) 3. Visual Field Loss - 0(No visual loss) 4. Facial Palsy - 2(Partial paralysis) 5a. Left Arm: Motor (10-second hold) - 0(No drift) 5b. Right Arm: Motor (10-second hold) - 0(No drift) 6a. Left Leg: Motor (5-second hold - always test supine) - 0(No drift) 6b. Right Leg: Motor (5-second hold - always test supine) - 0(No drift) 7. Limb Ataxia (finger/nose \T\ heel/fields - test with eyes open) - 0(Absent) 8. Sensory Loss (pinprick arms/legs/face) - 0(Normal) 9. Best Language: Aphasia (description/naming/reading) - 0(No aphasia) 10. Dysarthria (speech clarity - read or repeat words) - 0(Normal) 11. Extinction and Inattention (visual/tactile/auditory/spatial/personal) - 0(No abnormality) Initials: ss Signatures: Ej Del Real MD MD [facility] Jo Tam, WAREHOUSE WORKER 2ND SHIFT-C WAREHOUSE WORKER 2ND SHIFT-Csnw Tressa Smith, RN RN aa5 Angela Foss RN RN ss Corrections: (The following items were deleted from the chart) 04/13 19:25 18:40 04/13/2020 18:40 Discharged to Home. Impression: Grant's palsy. Condition ss is Stable. Forms are Medication Reconciliation Form, Thank You Letter, Antibiotic Education, Prescription Opioid Use. Follow up: Emergency Department; When: As needed; Reason: Worsening of condition. Follow up: Private Physician; When: 2 - 3 days; Reason: Recheck today's complaints, Continuance of care, Re-evaluation by your physician. snw
[2020-04-13 19:49] VITALS: BP 156/104; TEMP 98.3; O2SAT 100
== END 2020-04-13 19:25 | disposition home or self-care (01) ==
LOC: ER 18:17
DX: G51.0 Bell's palsy (principal); I10 Essential (primary) hypertension
CPT/HCPCS: 99282

== ENCOUNTER 2024-02-13 16:12 | Emergency (ER) | payer BC, SELFPAY ==
--- NOTE | 2024-02-13 17:24 | RAD REPORT ---
Procedure: Chest Pa And Lat (2 Views) HISTORY: Fever COMPARISON: none FINDINGS: Posterior lingular opacity. No significant pleural effusion noted. The heart is normal size. IMPRESSION: Lingular opacity probably pneumonia. This should be followed until it has cleared to help exclude a p ostobstructive process/underlying mass
--- NOTE | 2024-02-13 17:27 | ER ---
Nurse's Notes [facility] Name: Eliazar Hall Age: 53 yrs Sex: Male : 1970 Arrival Date: 02/13/2024 Time: 16:12 Bed 11 Private MD: Diagnosis: Pneumonia, unspecified organism Presentation: 02/12 16:18 Chief complaint: Patient states: went to urgent care last night, covid and flu was ko1 negative, had fever yesterday was not given a dx or meds, still feeling congested. Coronavirus screen: congestion, cough unrelated to allergies, fever. Ebola Screen: No symptoms or risks identified at this time. Initial Sepsis Screen: Does the patient meet any 2 criteria? No. Patient's initial sepsis screen is negative. Does the patient have a suspected source of infection? No. Patient's initial sepsis screen is negative. Risk Assessment: Do you want to hurt yourself or someone else? Patient reports no desire to harm self or others. Onset of symptoms was February 13, 2024. 16:18 Method Of Arrival: Ambulatory ko1 16:18 Acuity: IVANIA 4 ko1 Triage Assessment: 16:24 General: Appears in no apparent distress. Behavior is calm, cooperative, appropriate ko1 for age. Pain: Denies pain. Respiratory: Breath sounds are clear bilaterally. Historical: - Allergies: 16:24 No Known Allergies; ko1 - Home Meds: 16:24 Unable to obtain [Active]; ko1 - PMHx: 16:24 Hypertension; ko1 - PSHx: 16:24 None; ko1 - Immunization history:: Adult Immunizations up to date. - Infectious Disease History:: Denies. - Social history:: Smoking status: Patient denies any tobacco usage or history of. Screenin:42 [facility] ED Fall Risk Assessment (Adult) History of falling in the last 3 months, ko1 including since admission No falls in past 3 months (0 pts) Confusion or Disorientation No (0 pts) Intoxicated or Sedated No (0 pts) Impaired Gait No (0 pts) Mobility Assist Device Used No (0 pt) Altered Elimination No (0 pt) Score/Fall Risk Level 0 - 2 = Low Risk Oriented to surroundings, Maintained a safe environment, Educated pt \T\ family on fall prevention, incl call for assistance when getting out of bed, Assessed \T\ reinforced patient's understanding of fall precautions, Hourly rounding (assess needs \T\ fall precautionary measures) done. Abuse screen: Denies threats or abuse. Denies injuries from another. Nutritional screening: No deficits noted. Tuberculosis screening: No symptoms or risk factors identified. Assessment: 16:42 General: Appears in no apparent distress. Behavior is calm, cooperative, appropriate ko1 for age. Pain: Denies pain. Neuro: No deficits noted. Cardiovascular: Patient's skin is warm and dry. Respiratory: Airway is patent Trachea midline Respiratory effort is even, unlabored, Respiratory pattern is regular, symmetrical. Respiratory: Reports congestion. Respiratory: Breath sounds are clear bilaterally. GI: No deficits noted. : No deficits noted. EENT: No deficits noted. Derm: No deficits noted. Musculoskeletal: No deficits noted. 17:40 Neuro: Level of Consciousness is awake, alert, obeys commands, Oriented to person, aa5 place, time, situation. Respiratory: Airway is patent Respiratory effort is even, unlabored, Respiratory pattern is regular, symmetrical. Derm: Skin is dry, Skin is normal, Skin temperature is warm. Vital Signs: 16:18 BP 126 / 83; Pulse 91; Resp 18; Temp 98.4; Pulse Ox 98% ; ko1 ED Course: 16:18 Patient arrived in ED. mg5 16:18 Nandini Giron PA-C is PHCP. sb4 16:18 Hugo Gonzales MD is Attending Physician. sb4 16:24 Triage completed. ko1 16:24 Arm band placed on right wrist. Patient placed in an exam room, on a stretcher, on ko1 pulse oximetry, Patient notified of wait time. 16:41 Elidia Portillo, LESLIE is Primary Nurse. ko1 16:42 Patient has correct armband on for positive identification. Bed in low position. Call ko1 light in reach. Provided Education on: xray. Pulse ox on. NIBP on. Door closed. Noise minimized. Lights dimmed. 16:42 No provider procedures requiring assistance completed. Patient did not have IV access ko1 during this emergency room visit. 17:00 Chest Pa And Lat (2 Views) XRAY In Process Unspecified. EDMS Administered Medications: No medications were administered Medication: 16:42 VIS not applicable for this client. ko1 Outcome: 17:27 Discharge ordered by . sb4 17:40 Discharged to home ambulatory, aa5 17:40 Condition: stable 17:40 Discharge instructions given to patient, Instructed on discharge instructions, follow up and referral plans. medication usage, Demonstrated understanding of instructions, follow-up care, medications, Prescriptions given X 3, 17:41 Patient left the ED. sb4 Signatures: Dispatcher [employer] EDMS Tressa Smith RN RN aa5 Elidia Portillo RN RN Nandini Pacheco, PA-C PA-C sb4 Lavonne Vickers mg5
--- NOTE | 2024-02-13 17:28 | EDPHYS ---
Physician Documentation [facility] Name: Eliazar Hall Age: 53 yrs Sex: Male : 1970 Arrival Date: 02/13/2024 Time: 16:12 Bed 11 Private MD: ED Physician Hugo Gonzales HPI: 02/12 16:41 This 53 yrs old Black Male presents to ER via Ambulatory with complaints of Congestion. sb4 16:41 cough, congestion, fever, chills since yesterday. went to urgent care, had negative sb4 covid and flu swabs, was not prescribed any medications. states he is not feeling any better. Historical: - Allergies: 16:24 No Known Allergies; ko1 - Home Meds: 16:24 Unable to obtain [Active]; ko1 - PMHx: 16:24 Hypertension; ko1 - PSHx: 16:24 None; ko1 - Immunization history:: Adult Immunizations up to date. - Infectious Disease History:: Denies. - Social history:: Smoking status: Patient denies any tobacco usage or history of. ROS: 16:42 Cardiovascular: Negative for chest pain, palpitations, and edema, sb4 16:42 Constitutional: Positive for chills, fatigue, fever, malaise, 16:42 ENT: Positive for sinus congestion, 16:42 Respiratory: Positive for cough, 16:42 All other systems are negative, Exam: 16:42 Constitutional: This is a well developed, well nourished patient who is awake, alert, sb4 and in no acute distress. Head/Face: Normocephalic, atraumatic. Eyes: Extra-ocular motions intact. Periorbital areas with no swelling, redness, or edema. ENT: Mucous membranes moist. Cardiovascular: Regular rate and rhythm with a normal S1 and S2. Respiratory: No increased work of breathing, no retractions or nasal flaring. Abdomen/GI: Soft, non-tender, no distension. Skin: Warm, dry with normal turgor. Normal color with no rashes, no lesions, and no evidence of cellulitis. Vital Signs: 16:18 BP 126 / 83; Pulse 91; Resp 18; Temp 98.4; Pulse Ox 98% ; ko1 MDM: 16:26 Medical Screening Exam initiated sb4 17:26 Data reviewed: vital signs, nurses notes, radiologic studies, and as a result, I will sb4 discharge patient. Counseling: I had a detailed discussion with the patient and/or guardian regarding the historical points, exam findings, and any diagnostic results supporting the discharge/admit diagnosis, radiology results, to return to the emergency department if symptoms worsen or persist or if there are any questions or concerns that arise at home. 02/12 16:32 Order name: Chest Pa And Lat (2 Views) XRAY; Complete Time: 17:25 sb4 Administered Medications: No medications were administered Disposition Summary: 02/13/24 17:27 Discharge Ordered Notes: Location: Home sb4 Problem: new sb4 Symptoms: are unchanged sb4 Condition: Stable sb4 Diagnosis - Pneumonia, unspecified organism sb4 Followup: sb4 - With: Private Physician - When: 1 week - Reason: Recheck today's complaints, Re-evaluation by your physician Discharge Instructions: - Discharge Summary Sheet sb4 - Community-Acquired Pneumonia, Adult sb4 Forms: - Work release form aa5 - Antibiotic Education sb4 - Patient Portal Instructions sb4 - Leadership Thank You Letter sb4 Prescriptions: - azithromycin 250 mg Oral tablet - take 1 dose pack ORAL route as directed on dose pack For 250 mg dose pack: take sb4 500 mg today (day 1), then 250 mg for 4 days (days 2-5); 1 Pack; Refills: 0, Product Selection Permitted - Amoxicillin 875 mg Oral Tablet - take 1 tablet ORAL route every 12 hours for 10 days; 20 tablet; Refills: 0, sb4 Product Selection Permitted - Prednisone 20 mg Oral Tablet - take 2 tablets ORAL route once daily for 5 days; 10 tablet; Refills: 0, Product sb4 Selection Permitted Addendum: 02/15/2024 17:38 I was immediately available for consultation during this patient's visit. I did not e c2 personally see the patient or discuss the patient with the SUNITA. . Signatures: Dispatcher [employer] Elidia Cook, LESLIE RN ko1 Nandini Giron PA-C PA-C sb4 Hugo Gonzales MD MD ec2
[2024-02-13 17:46] VITALS: BP 126/83; TEMP 98.4; O2SAT 98
== END 2024-02-13 17:41 | disposition home or self-care (01) ==
LOC: ER 16:12
DX: J18.9 Pneumonia, unspecified organism (principal)
CPT/HCPCS: 71046; 99283